=== PATIENT | female | born 1990 | race African-American/Black ===

== ENCOUNTER 2023-04-29 12:53 | Emergency (ER) | payer MEDICAID, OTHER ==
[~2023-04-29] VITALS: Ht 167.6 cm; Wt 73.0 kg
[~2023-04-29 12:53] MED LIST: LEVO-65 MT
[2023-04-29 13:37] LABS: BASOPHILS % 1.3 % (0.0-2.0); EOSINOPHILS % 4.1 % (0.0-5.0); HEMATOCRIT. 41.9 % (36.0-48.0); HEMOGLOBIN. 14.8 g/dL (12.0-16.0); LYMPHOCYTES % 49.7 % (20.0-50.0); MEAN CORPUSCULAR HEMOGLOBIN 35.2 pg (28.0-32.0); MEAN CORPUSCULAR HGB CONC 35.2 g/dL (31.0-37.0); MEAN CORPUSCULAR VOLUME 99.9 fL (81.0-99.0); MEAN PLATELET VOLUME 7.3 fl (7.4-10.4); NEUTROPHILS % 36.9 % (40.0-76.0); PLATELET 406 x1000/uL (130-400); RED CELL DISTRIBUTION WIDTH 13.3 % (11.6-14.6); WHITE BLOOD COUNT 4.6 x1000/uL (4.5-11.0)
[2023-04-29 13:45] VITALS: O2SAT 100
[2023-04-29 14:10] LABS: CLARITY URINE CLOUDY (CLEAR); COLOR URINE YELLOW (YELLOW); GLUCOSE URINE NEGATIVE (NEGATIVE); KETONES URINE NEGATIVE (NEGATIVE); LEUKOCYTE ESTERASE URINE TRACE (NEGATIVE); NITRITE URINE NEGATIVE (NEGATIVE); OCCULT BLOOD URINE 2+ (NEGATIVE); PH URINE >=9.0 (4.5-8.0); PROTEIN URINE 1+ (NEGATIVE); UROBILINOGEN URINE 0.2 E.U./dL (0.2-1.0)
[2023-04-29 14:32] LABS: BACTERIA URINE 1+; RBC URINE 15-25 /hpf (0-2); SQUAMOUS EPITHELIAL CELL URINE 3+ /lpf (RARE/1+); WBC URINE 0-2 /hpf (0-2); YEAST URINE NONE SEEN
[2023-04-29 15:05] LABS: ALANINE AMINOTRANSFERASE 23 IU/L (10-49); ALBUMIN 4.3 g/dL (3.2-4.8); ASPARTATE AMINOTRANSFERASE 31 IU/L (<34); BILIRUBIN TOTAL 0.5 mg/dL (0.1-1.0); CALCIUM 9.4 mg/dL (8.7-10.4); CARBON DIOXIDE 37 mEq/L (21-32); CHLORIDE 101 mEq/L (98-107); CREATININE 0.8 mg/dL (0.6-1.0); GLUCOSE 82 mg/dL (70-105); POTASSIUM 3.4 mEq/L (3.5-5.1); PROTEIN TOTAL 6.9 g/dL (6.0-8.3); SODIUM 140 mEq/L (136-145); UREA NITROGEN BLOOD 8 mg/dL (9-23)
[2023-04-29] MEDS ORDERED: CEFTRIAXONE SODIUM 500 MG/VIAL IM ONE (16:00)
[2023-04-29] MEDS ORDERED: AZITHROMYCIN 500 MG TABLET PO ONE (16:00)
[2023-04-29 17:21] VITALS: BP 108/77; PULSE 62; RESP 19; TEMP 98.2
== END 2023-04-29 17:23 | disposition home or self-care (01) ==
LOC: ER 12:53
DX: R10.30 Lower abdominal pain, unspecified (principal)
CPT/HCPCS: 87491; 87591; 80053; 81003; 81025; 83690; 85025; 36415; 96372; 99283; J0696; Z7610 ×2

== ENCOUNTER 2023-08-23 10:54 | Inpatient (IN) | payer MEDICAID, OTHER ==
[~2023-08-23] VITALS: Ht 152.4 cm; Wt 71.7 kg
[2023-08-23 10:57] VITALS: O2SAT 100
[2023-08-23 12:24] LABS: BASOPHILS % 0.3 % (0.0-2.0); DIFFERENTIAL COMMENT 0; EOSINOPHILS % 0.3 % (0.0-5.0); HEMATOCRIT. 43.8 % (36.0-48.0); HEMOGLOBIN. 15.3 g/dL (12.0-16.0); MEAN CORPUSCULAR HEMOGLOBIN 35.1 pg (28.0-32.0); MEAN CORPUSCULAR HGB CONC 34.9 g/dL (31.0-37.0); MEAN CORPUSCULAR VOLUME 100.5 fL (81.0-99.0); MEAN PLATELET VOLUME 7.2 fl (7.4-10.4); MONOCYTES % 7.8 % (2.0-8.0); NEUTROPHILS % 70.6 % (40.0-76.0); PLATELET 364 x1000/uL (130-400); RED BLOOD CELL COUNT 4.36 mill/uL (4.2-5.4); RED CELL DISTRIBUTION WIDTH 13.8 % (11.6-14.6); WHITE BLOOD COUNT 9.7 x1000/uL (4.5-11.0)
[2023-08-23 12:32] LABS: CHLORIDE 98 mEq/L (98-107); POTASSIUM 2.9 mEq/L (3.5-5.1); SODIUM 135 mEq/L (136-145)
[2023-08-23 12:33] LABS: CARBON DIOXIDE 28 mEq/L (21-32)
[2023-08-23 12:37] LABS: HCG SCREEN NEGATIVE
[2023-08-23 12:38] LABS: CREATININE 0.8 mg/dL (0.6-1.0); GLUCOSE 92 mg/dL (70-105); UREA NITROGEN BLOOD 8 mg/dL (9-23)
[2023-08-23 12:40] LABS: ALANINE AMINOTRANSFERASE 27 IU/L (10-49); ALBUMIN 4.6 g/dL (3.2-4.8); ASPARTATE AMINOTRANSFERASE 39 IU/L (<34); BILIRUBIN TOTAL 1.2 mg/dL (0.1-1.0); PROTEIN TOTAL 7.5 g/dL (6.0-8.3)
[2023-08-23] MEDS: MORPHINE SULFATE 4 MG/ML INJ (FOR IV/IM USE) IV STA (12:42)
[2023-08-23] MEDS: ONDANSETRON HCL 4MG/2ML INJ IV STA (12:43)
[2023-08-23] MEDS: FAMOTIDINE 20MG/2ML VIAL IV STA (12:43)
[2023-08-23] MEDS: SODIUM CHLORIDE 0.9% 1,000 ML IV ONE (12:43)
[2023-08-23] MEDS: POTASSIUM CHLORIDE 20MEQ/PACKET PO ONE (13:37)
[2023-08-23] MEDS: IOHEXOL-350 100 ML BOTTLE ONE (14:28)
[2023-08-23] MEDS: MORPHINE SULFATE 4 MG/ML INJ (FOR IV/IM USE) IV ONE (15:26)
[2023-08-23] MEDS: KCL 10MEQ/50ML PREMIX 50 ML IV ONE (17:07)
[2023-08-23] MEDS ORDERED: ACETAMINOPHEN 325MG TABLET PO PRN ×2 (18:00)
[2023-08-23] MEDS ORDERED: CLONIDINE 0.1MG TABLET PO PRN (18:00)
[2023-08-23] MEDS ORDERED: DOCUSATE SODIUM 100MG CAPSULE PO PRN (18:00)
[2023-08-23] MEDS ORDERED: IPRATROPIUM/ALBUTEROL 0.5-3(2.5)MG/3ML NEB HHN PRN (18:00)
[2023-08-23] MEDS ORDERED: LORAZEPAM 0.5MG TABLET PO PRN (18:00)
[2023-08-23] MEDS: ONDANSETRON HCL 4MG/2ML INJ IV PRN (19:47)
[2023-08-23] MEDS: MORPHINE SULFATE 2 MG/ML CPJ (NOT FOR IM USE) IV PRN (19:48)
[2023-08-23] MEDS: MVI, ADULT NO.1 10 ML, FOLIC ACID 1 MG, THIAMINE HCL 100 MG in SODIUM CHLORIDE 0.9% 1,0... IV SCH (20:15)
[2023-08-23] MEDS: MELATONIN 3MG TABLET PO SCH (21:00)
[2023-08-23] MEDS: CHLORDIAZEPOXIDE 25MG CAPSULE PO SCH (22:11)
[2023-08-23 22:17] LABS: AMYLASE 165 IU/L (30-118)
[2023-08-24] VITALS (7 sets, daily range): BP systolic 95–124; BP diastolic 52–86; PULSE 50–76; RESP 17–18; TEMP 97.1–99.9
[2023-08-24 07:07] LABS: BASOPHILS % 0.3 % (0.0-2.0); DIFFERENTIAL COMMENT 0; EOSINOPHILS % 3.3 % (0.0-5.0); HEMATOCRIT. 37.2 % (36.0-48.0); HEMOGLOBIN. 12.5 g/dL (12.0-16.0); LYMPHOCYTES % 44.1 % (20.0-50.0); MEAN CORPUSCULAR HEMOGLOBIN 33.9 pg (28.0-32.0); MEAN CORPUSCULAR HGB CONC 33.6 g/dL (31.0-37.0); MEAN CORPUSCULAR VOLUME 100.9 fL (81.0-99.0); MEAN PLATELET VOLUME 7.5 fl (7.4-10.4); MONOCYTES % 6.3 % (2.0-8.0); PLATELET 277 x1000/uL (130-400); RED BLOOD CELL COUNT 3.68 mill/uL (4.2-5.4); WHITE BLOOD COUNT 6.7 x1000/uL (4.5-11.0)
[2023-08-24 07:51] LABS: CHLORIDE 106 mEq/L (98-107); POTASSIUM 3.3 mEq/L (3.5-5.1); SODIUM 139 mEq/L (136-145)
[2023-08-24 07:52] LABS: CALCIUM 8.2 mg/dL (8.7-10.4); CARBON DIOXIDE 24 mEq/L (21-32)
[2023-08-24 07:57] LABS: CREATININE 0.6 mg/dL (0.6-1.0); GLUCOSE 76 mg/dL (70-105); UREA NITROGEN BLOOD 8 mg/dL (9-23)
[2023-08-24 07:58] LABS: ALANINE AMINOTRANSFERASE 16 IU/L (10-49)
[2023-08-24 07:59] LABS: ALBUMIN 3.6 g/dL (3.2-4.8); ASPARTATE AMINOTRANSFERASE 26 IU/L (<34)
[2023-08-24 08:00] LABS: PROTEIN TOTAL 5.7 g/dL (6.0-8.3)
[2023-08-24] MEDS: SODIUM CHLORIDE 0.9% 1,000 ML IV SCH (08:00)
[2023-08-24 08:31] LABS: HEPATITIS B SURFACE ANTIGEN NEGATIVE (Negative)
[2023-08-24] MEDS ORDERED: NALOXONE HCL 0.4MG/ML VIAL IV PRN (08:45)
[2023-08-24 08:52] LABS: HEPATITIS C AB NON REACTIVE (Neg) (Negative)
[2023-08-24] MEDS: MULTIVITAMINS,THER W-MINERALS TABLET PO SCH (10:06)
[2023-08-24] MEDS: THIAMINE HCL 100MG TABLET PO SCH (10:06)
[2023-08-24] MEDS: FOLIC ACID 1MG TABLET PO SCH (10:06)
[2023-08-24] MEDS: HYDROMORPHONE HCL/PF 2MG/ML CPJ IV PRN (10:37)
[2023-08-24] MEDS: POTASSIUM CHLORIDE 20MEQ TABLET SR PO NR (18:52)
[2023-08-24] MEDS: DIPHENHYDRAMINE 25MG CAPSULE PO PRN (18:52)
[2023-08-25] VITALS: BP 100/61; PULSE 69; RESP 18; TEMP 99
[2023-08-25 04:00] VITALS: BP 101/63; PULSE 71; RESP 18; TEMP 97.9
[2023-08-25 08:00] VITALS: BP 100/64; PULSE 72; RESP 19; TEMP 98.1
[2023-08-25 10:14] LABS: PHOSPHORUS 2.7 mg/dL (2.5-4.9)
[2023-08-25 10:18] LABS: POTASSIUM 3.9 mEq/L (3.5-5.1)
[2023-08-25 12:00] VITALS: BP 100/67; PULSE 74; RESP 20; TEMP 97.9
[2023-08-25 16:00] VITALS: BP 102/67; PULSE 67; RESP 20; TEMP 97.9
[2023-08-25 17:32] VITALS: BP 100/64; PULSE 72; RESP 19
== END 2023-08-25 18:01 | disposition left against medical advice (07) | DRG 282 ==
LOC: ER 10:54 → EDBEDREQTM 15:04 → EDBEDREQ 15:04 → 5WST 16:34 → 6EST 23:25
PROVIDERS: ADMIT Internal Medicine; ATTEND Internal Medicine
DX: K85.20 Alcohol induced acute pancreatitis without necrosis or infection (principal); E87.6 Hypokalemia; F10.10 Alcohol abuse, uncomplicated; F17.210 Nicotine dependence, cigarettes, uncomplicated; R74.8 Abnormal levels of other serum enzymes; K76.9 Liver disease, unspecified; Z53.29 Procedure and treatment not carried out because of patient's decision for other reasons
CPT/HCPCS: 36415; 74177; 80053; 82150; 83735; 84100; 84132; 84703; 85025; 86705; 87340; 99285; J1170; J2270; J2405; J3411; J3480; J3490; J7030; Q0163; Q9967

== ENCOUNTER 2024-11-22 13:31 | Emergency (ER) | payer MEDICAID ==
[~2024-11-22] VITALS: Ht 162.6 cm; Wt 62.0 kg
[~2024-11-22 13:31] MED LIST changes: -LEVO-65 MT; +PANT40TA51 PO; +QUET100T34 PO; +THIA100T88 MT
[2024-11-22 13:42] VITALS: O2SAT 98
[2024-11-22 14:09] LABS: CLARITY URINE CLOUDY (CLEAR); COLOR URINE ORANGE (YELLOW); GLUCOSE URINE NEGATIVE (NEGATIVE); KETONES URINE 2+ (NEGATIVE); LEUKOCYTE ESTERASE URINE 1+ (NEGATIVE); NITRITE URINE POSITIVE (NEGATIVE); OCCULT BLOOD URINE 3+ (NEGATIVE); PH URINE 6.0 (4.5-8.0); PROTEIN URINE 2+ (NEGATIVE); SPECIFIC GRAVITY URINE 1.029 (1.005-1.030); UROBILINOGEN URINE 1.0 E.U./dL (0.2-1.0)
[2024-11-22 14:57] LABS: BACTERIA URINE 3+; MUCUS URINE 1+ /lpf (< = 2+); SQUAMOUS EPITHELIAL CELL URINE 3+ /lpf (RARE/1+)
[2024-11-22 14:58] LABS: RBC URINE 0-2 /hpf (0-2)
[2024-11-22] MEDS: LIDOCAINE HCL 1% 20ML VIAL INFIL ONE (15:15)
[2024-11-22] MEDS: CEFTRIAXONE SODIUM 500MG VIAL IM ONE (15:55)
[2024-11-22] MEDS ORDERED: DOXY100C5 MT (16:06)
[2024-11-22] MEDS ORDERED: CEPH500C2 MT (16:06)
[2024-11-22] MEDS ORDERED: IBUP-2029 MT (16:06)
[2024-11-22] MEDS ORDERED: PYR200 MT (16:06)
[2024-11-22 16:34] VITALS: BP 115/83; PULSE 88; RESP 18; TEMP 37.1; O2SAT 100
[2024-11-25 04:10] LABS: CHLAMYDIA TRACHOMATIS NAA Negative (Negative); NEISSERIA GONORRHOEAE NAA Negative (Negative)
== END 2024-11-22 16:35 | disposition home or self-care (01) ==
LOC: ER 13:31
DX: N30.00 Acute cystitis without hematuria (principal); Z20.2 Contact with and (suspected) exposure to infections with a predominantly sexual mode of transmission; Z79.899 Other long term (current) drug therapy
CPT/HCPCS: 99284; 86592; 87491; 87591; 81003; 81025; 87210; 36415; 96372; J0696; J2003

== ENCOUNTER 2025-01-10 13:31 | Emergency (ER) | payer MEDICAID, OTHER ==
[~2025-01-10] VITALS: Ht 162.6 cm; Wt 59.0 kg
[~2025-01-10 13:31] MED LIST changes: +CEPH500C2 MT; +DOXY100C5 MT; +IBUP-1455 MT; +PYR200 MT
[2025-01-10 13:34] VITALS: O2SAT 99
[2025-01-10 15:15] LABS: BASOPHILS % 0.9 % (0.0-2.0); EOSINOPHILS % 1.5 % (0.0-5.0); HEMATOCRIT. 36.5 % (36.0-48.0); HEMOGLOBIN. 11.7 g/dL (12.0-16.0); LYMPHOCYTES % 28.9 % (20.0-50.0); MEAN PLATELET VOLUME 7.1 fl (7.4-10.4); MONOCYTES % 5.2 % (2.0-8.0); NEUTROPHILS % 63.5 % (40.0-76.0); PLATELET 280 x1000/uL (130-400); RED BLOOD CELL COUNT 4.18 mill/uL (4.2-5.4); RED CELL DISTRIBUTION WIDTH 22.5 % (11.6-14.6)
[2025-01-10 15:16] LABS: ADD RBC MORPHOLOGY YES
[2025-01-10 15:29] LABS: CREATININE 0.6 mg/dL (0.6-1.0)
[2025-01-10 15:30] LABS: UREA NITROGEN BLOOD < 5 mg/dL (9-23)
[2025-01-10 15:31] LABS: ASPARTATE AMINOTRANSFERASE 97 IU/L (<34)
[2025-01-10 15:32] LABS: BILIRUBIN DIRECT 0.3 mg/dL (<=3.0); BILIRUBIN TOTAL 1.1 mg/dL (0.1-1.0); PROTEIN TOTAL 6.9 g/dL (6.0-8.3)
[2025-01-10 15:36] LABS: PLATELET ESTIMATE NORMAL
[2025-01-10 16:27] LABS: CLARITY URINE CLOUDY (CLEAR); COLOR URINE YELLOW (YELLOW); GLUCOSE URINE NEGATIVE (NEGATIVE); KETONES URINE NEGATIVE (NEGATIVE); LEUKOCYTE ESTERASE URINE 3+ (NEGATIVE); NITRITE URINE NEGATIVE (NEGATIVE); OCCULT BLOOD URINE NEGATIVE (NEGATIVE); PH URINE >=9.0 (4.5-8.0); PROTEIN URINE NEGATIVE (NEGATIVE); SPECIFIC GRAVITY URINE 1.007 (1.005-1.030); UROBILINOGEN URINE 0.2 E.U./dL (0.2-1.0)
[2025-01-10] MEDS: KCL 10MEQ/50ML PREMIX 50 ML IV SCH (16:30)
[2025-01-10] MEDS: KETOROLAC 15MG/ML VIAL IV ONE (16:31)
[2025-01-10] MEDS: SODIUM CHLORIDE 0.9% 1,000 ML IV ONE (16:31)
[2025-01-10 17:18] LABS: BACTERIA URINE 2+; RBC URINE 0-2 /hpf (0-2); SQUAMOUS EPITHELIAL CELL URINE 2+ /lpf (RARE/1+)
[2025-01-10 17:50] VITALS: BP 109/61; PULSE 82; RESP 16; TEMP 36.9; O2SAT 99
== END 2025-01-10 18:07 | disposition short-term general hospital (02) ==
LOC: ER 13:37 → CMPBEDREQ 01-11 07:38
DX: R55 Syncope and collapse (principal); Z79.899 Other long term (current) drug therapy; W19.XXXA Unspecified fall, initial encounter; Y93.89 Activity, other specified; Y92.89 Other specified places as the place of occurrence of the external cause; Y99.8 Other external cause status
CPT/HCPCS: 80076; 80048; 81003; 81025; 83735; 85025; 36415; 71045; 73560; 93005; 96365; 96375; 99285; J1885; J3480; J7030; Z7610 ×2; A4606